=== PATIENT | female | born 2005 | race American Indian/Alaskan Native ===

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

== ENCOUNTER 2023-07-08 20:51 | Emergency (ER) | payer MEDICAID ==
[2023-07-08] MEDS ORDERED: Sodium Chloride 0.9% 1,000 ML IV ONE (20:59)
[2023-07-08] MEDS ORDERED: Ondansetron 4 MG/2 ML SDV IVPUSH ONE (20:59)
[2023-07-08 21:10] LABS: BASOPHILS PERCENT AUTO 0.3 % (0.0-1.0); EOSINOPHILS PERCENT AUTO 1.3 % (1.0-3.0); HEMATOCRIT 41.1 % (37.0-47.0); HEMOGLOBIN 13.2 g/dL (12.0-16.0); LYMPHOCYTES PERCENT AUTO 32.5 % (20.5-50.1); MEAN CORPUSCULAR HEMOGLOBIN 27.5 pg (27.0-34.0); MEAN CORPUSCULAR HGB CONC 32.1 g/dL (33.0-35.0); MEAN CORPUSCULAR VOLUME 85.6 fL (80-100); MONOCYTES PERCENT AUTO 7.4 % (2-8); NEUTROPHILS PERCENT AUTO 58.5 % (42.2-75.2); PLATELET COUNT,PLT 386 10^3/uL (150-450)
[2023-07-08 21:23] LABS: LACTIC ACID 1.6 mmol/L (0.4-2.0)
[2023-07-08 21:27] LABS: HCG QUALITATIVE,SERUM NEGATIVE (NEGATIVE); INR 0.9 (0.9-1.2); PROTHROMBIN TIME 9.3 SEC (9.0-12.0); PTT,PARTIAL THROMBOPLSTIN TIME 23.9 SEC (22.0-34.0)
[2023-07-08 21:33] LABS: AMPHETAMINES,URINE NEGATIVE (NEGATIVE); BARBITURATES,URINE NEGATIVE (NEGATIVE); BENZODIAZEPINE,URINE NEGATIVE (NEGATIVE); MDMA (ECSTASY), URINE NEGATIVE (NEGATIVE); METHADONE,URINE NEGATIVE (NEGATIVE); METHAMPHETAMINES,URINE NEGATIVE (NEGATIVE); OPIATES,URINE NEGATIVE (NEGATIVE); OXYCODONE,URINE NEGATIVE (NEGATIVE); PHENCYCLIDINE,URINE NEGATIVE (NEGATIVE); TCA,URINE NEGATIVE (NEGATIVE)
[2023-07-08 21:34] LABS: APPEARANCE,URINE CLEAR (CLEAR); BILIRUBIN,URINE NEGATIVE (NEGATIVE); COLOR,URINE YELLOW (YELLOW); GLUCOSE,URINE NEGATIVE (NEGATIVE); KETONES,URINE NEGATIVE (NEGATIVE); LEUKOCYTE ESTERASE,URINE NEGATIVE (NEGATIVE); NITRITE,URINE NEGATIVE (NEGATIVE); OCCULT BLOOD,URINE TRACE-LYSED (NEGATIVE); PROTEIN,URINE NEGATIVE (NEGATIVE); UROBILINOGEN,URINE 0.2 mg/dL (0.2-1.0)
[2023-07-08 21:37] LABS: A/G RATIO 0.9; ALANINE AMINOTRANSFERASE,ALT 16 U/L (14-59); ALBUMIN 3.6 g/dL (3.4-5.0); ALKALINE PHOSPHATASE 144 U/L (46-116); ANION GAP 14.4 mEq/L (7-13); ASPARTATE AMNIOTRANSFERASE,AST 11 U/L (15-37); BILIRUBIN TOTAL 0.2 mg/dL (0.2-1.0); BLOOD UREA NITROGEN,BUN 5 mg/dL (7-18); BUN/CREATININE RATIO 6.8 (No establ ref range); CALCIUM 8.5 mg/dL (8.5-10.1); CARBON DIOXIDE,CO2 23 mmol/L (21-32); CHLORIDE,CL 107 mmol/L (98-107); CREATININE 0.74 mg/dL (0.55-1.02); EST CRCL DRUG DOSING (CG) 100.32 mL/min; GLUCOSE RANDOM 79 mg/dL (70-99); MAGNESIUM 2.4 mg/dL (1.8-2.4); POTASSIUM,K 3.4 mmol/L (3.5-5.1); PROTEIN TOTAL,TP 7.7 g/dL (6.4-8.2); SODIUM,NA 141 mmol/L (136-145); TSH ULTRASENSITIVE 0.49 uIU/mL (0.36-3.74)
[2023-07-08 21:39] LABS: ESTIMATED GFR 119 mL/min (>=60)
[2023-07-08 21:40] LABS: ETHANOL BLOOD MEDICAL 419 mg/dL (0)
[2023-07-08] MEDS: Sodium Chloride 0.9% 10 ML Syringe FLUSH PRN ×2 (21:42→23:09)
[2023-07-08 21:45] LABS: BACTERIA,URINE RARE /HPF (0-FEW/HPF); EPITHELIAL CELLS,URINE RARE /HPF (NOT SEEN); RBC,URINE 0-5 /HPF (0-5); WBC,URINE 0-5 /HPF (0-5/HPF)
[2023-07-08] MEDS ORDERED: Lactated Ringers 1,000 ML IV ONE ×2 (22:04→23:28)
[2023-07-09 05:56] VITALS: BP 95/62; PULSE 98
== END 2023-07-09 05:50 | disposition home or self-care (01) ==
LOC: DL.ED 20:51
DX: E87.6 Hypokalemia (principal); F10.920 Alcohol use, unspecified with intoxication, uncomplicated
CPT/HCPCS: 36415; 51702; 70450; 72125; 80053; 80305-QW; 80307; 81001; 83605; 83735; 84443; 84703; 85025; 85610; 85730; 96361; 96374; 99284; 99285-25; J2405; J3490; J7030; J7120

== ENCOUNTER 2025-04-23 22:10 | Inpatient (IN) | payer MEDICAID ==
[2025-04-23] MEDS: Lactated Ringers 1,000 ML IV ONE (23:40)
[2025-04-23] MEDS ORDERED: Oxytocin/Lactated Ringers 30 UNIT/500 ML BAG IV SCH (23:45)
[2025-04-23] MEDS ORDERED: Sodium Chloride 0.9% 10 ML Syringe FLUSH PRN (23:55)
[2025-04-23] MEDS ORDERED: Ondansetron 4 MG/2 ML SDV IVPUSH PRN (23:55)
[2025-04-23] MEDS ORDERED: Carboprost Tromethamine 250 MCG/1 ML Amp IM PRN (23:55)
[2025-04-24 00:03] LABS: PLATELET COUNT,PLT 326.0 10^3/uL (150-450); RED BLOOD CELL COUNT 3.91 10^6/uL (4.2-5.4); WHITE BLOOD CELL COUNT,WBC 12.9 10^3/uL (5.0-10.0)
[2025-04-24] MEDS: Lactated Ringers 1,000 ML IV SCH (00:34)
[2025-04-24 01:03] LABS: APPEARANCE,URINE SLIGHTLY CLOUDY (CLEAR); GLUCOSE,URINE NEGATIVE (NEGATIVE); OCCULT BLOOD,URINE SMALL (NEGATIVE)
[2025-04-24 01:07] LABS: AMPHETAMINES,URINE POSITIVE (NEGATIVE); BARBITURATES,URINE NEGATIVE (NEGATIVE); MDMA (ECSTASY), URINE NEGATIVE (NEGATIVE); METHAMPHETAMINES,URINE POSITIVE (NEGATIVE); OPIATES,URINE NEGATIVE (NEGATIVE); OXYCODONE,URINE NEGATIVE (NEGATIVE); PHENCYCLIDINE,URINE NEGATIVE (NEGATIVE); TCA,URINE NEGATIVE (NEGATIVE)
[2025-04-24 01:24] LABS: SQUAMOUS EPITHELIAL CELLS,UR MODERATE /HPF (NOT SEEN)
[2025-04-24] MEDS ORDERED: Ropivacaine 200 MG in Premix Bag 1 BAG EPIDUR SCH (01:45)
[2025-04-24] MEDS: ePHEDrine 50 MG/ML SDV IVPUSH PRN (03:31)
[2025-04-24] MEDS: Oxytocin/Normal Saline 30 UNIT/500 ML BAG IV SCH (04:04)
[2025-04-24] MEDS: Benzocaine/Menthol 20%-0.5% Spray 78 GM Cannister TOP PRN (13:22)
[2025-04-24] MEDS: Witch Hazel Medicated Pads 100/Jar TOP PRN (13:23)
[2025-04-26 07:37] VITALS: BP 110/68; PULSE 68
[2025-04-26] MEDS: Ketorolac 30 MG/ML SDV IM ONE (15:07)
[2025-04-26] MEDS ORDERED: Ropivacaine 100 ML EPIDUR ONE (18:29)
== END 2025-04-26 18:30 | disposition home or self-care (01) | DRG 806 ==
LOC: DL.OBCHECK 22:10 → DL.OB 04-24 → OBSVTOIN 04-24 11:13
PROVIDERS: ADMIT Obstetrics & Gynecology; ATTEND Family Medicine
PROC: 10907ZC Drainage of Amniotic Fluid, Therapeutic from Products of Conception, Via Natural or Artificial Opening (ICD-10-PCS; principal; 2025-04-24)
PROC: 10E0XZZ Delivery of Products of Conception, External Approach (ICD-10-PCS; principal; 2025-04-24)
DX: O99.02 Anemia complicating childbirth (principal); O98.82 Other maternal infectious and parasitic diseases complicating childbirth; Z37.0 Single live birth; O99.324 Drug use complicating childbirth; O36.8339 Maternal care for abnormalities of the fetal heart rate or rhythm, third trimester, other fetus; Z3A.38 38 weeks gestation of pregnancy
CPT/HCPCS: 01967; 36415; 51702; 59409; 59414; 80305-QW; 81001; 85027; 86850; 86900; 86901; A9270-GY; J1885; J2590; J2795; J3490; J7120

== ENCOUNTER 2025-06-03 04:36 | Emergency (ER) | payer MEDICAID ==
[2025-06-03] MEDS: Sodium Chloride 0.9% 10 ML Syringe FLUSH PRN (05:15)
[2025-06-03] MEDS: Ondansetron 4 MG/2 ML SDV IVPUSH ONE (05:15)
[2025-06-03 05:21] LABS: BASOPHILS PERCENT AUTO 0.1 % (0.0-1.0); EOSINOPHILS PERCENT AUTO 2.5 % (1.0-3.0); LYMPHOCYTES PERCENT AUTO 36.8 % (20.5-50.1); MONOCYTES PERCENT AUTO 9.1 % (2-8); NEUTROPHILS PERCENT AUTO 51.5 % (42.2-75.2); PLATELET COUNT,PLT 314 10^3/uL (150-450); RED BLOOD CELL COUNT 4.21 10^6/uL (4.2-5.4); WHITE BLOOD CELL COUNT,WBC 7.9 10^3/uL (5.0-10.0)
[2025-06-03 05:38] LABS: ALANINE AMINOTRANSFERASE,ALT 16 U/L (14-59); ASPARTATE AMNIOTRANSFERASE,AST 11 U/L (15-37); BILIRUBIN TOTAL 0.2 mg/dL (0.2-1.0); BLOOD UREA NITROGEN,BUN 14 mg/dL (7-18); CARBON DIOXIDE,CO2 26 mmol/L (21-32); CHLORIDE,CL 107 mmol/L (98-107); CREATININE 0.66 mg/dL (0.55-1.02); EST CRCL DRUG DOSING (CG) 110.60 mL/min; GLUCOSE RANDOM 88 mg/dL (70-99); POTASSIUM,K 3.4 mmol/L (3.5-5.1); PROTEIN TOTAL,TP 6.4 g/dL (6.4-8.2); SODIUM,NA 140 mmol/L (136-145)
[2025-06-03 05:40] LABS: A/G RATIO 0.94; ESTIMATED GFR 127 mL/min (>=60)
[2025-06-03] MEDS: Iopamidol 612 MG/ML 100 ML Bottle IVPUSH ONE (05:46)
[2025-06-03] MEDS: Lactated Ringers 1,000 ML IV ONE (05:59)
[2025-06-03] MEDS: Ketorolac 30 MG/ML SDV IVPUSH ONE (06:00)
[2025-06-03 06:25] LABS: APPEARANCE,URINE SLIGHTLY CLOUDY (CLEAR); GLUCOSE,URINE NEGATIVE (NEGATIVE); OCCULT BLOOD,URINE LARGE (NEGATIVE)
[2025-06-03 06:28] LABS: AMPHETAMINES,URINE NEGATIVE (NEGATIVE); BARBITURATES,URINE NEGATIVE (NEGATIVE); MDMA (ECSTASY), URINE NEGATIVE (NEGATIVE); METHAMPHETAMINES,URINE NEGATIVE (NEGATIVE); OPIATES,URINE NEGATIVE (NEGATIVE); OXYCODONE,URINE NEGATIVE (NEGATIVE); PHENCYCLIDINE,URINE NEGATIVE (NEGATIVE); TCA,URINE NEGATIVE (NEGATIVE)
[2025-06-03 06:52] LABS: EPITHELIAL CELLS,URINE MANY /HPF (NOT SEEN)
[2025-06-03 07:15] LABS: CHOLESTEROL HDL 37 mg/dL (40-59); CHOLESTEROL LDL CALCULATED 107 mg/dL (0-100); CHOLESTEROL TOTAL 165 mg/dL (0-199)
[2025-06-03 07:51] VITALS: BP 96/61; PULSE 54
== END 2025-06-03 07:49 | disposition home or self-care (01) ==
LOC: DL.ED 04:36
DX: O99.63 Diseases of the digestive system complicating the puerperium (principal); K85.00 Idiopathic acute pancreatitis without necrosis or infection; F17.210 Nicotine dependence, cigarettes, uncomplicated
CPT/HCPCS: 36415; 71045; 74177; 80053; 80061; 80305; 80307; 81001; 83690; 83735; 85025; 87086; 96361; 96374; 96375; 99285; J1885; J2405; J7120; Q9967; 99284

== ENCOUNTER 2025-06-20 02:07 | Emergency (ER) | payer MEDICAID ==
[2025-06-20 02:24] LABS: BASOPHILS PERCENT AUTO 0.2 % (0.0-1.0); EOSINOPHILS PERCENT AUTO 3.3 % (1.0-3.0); LYMPHOCYTES PERCENT AUTO 29.9 % (20.5-50.1); MONOCYTES PERCENT AUTO 7.9 % (2-8); NEUTROPHILS PERCENT AUTO 58.7 % (42.2-75.2); PLATELET COUNT,PLT 353 10^3/uL (150-450); RED BLOOD CELL COUNT 4.17 10^6/uL (4.2-5.4); WHITE BLOOD CELL COUNT,WBC 9.3 10^3/uL (5.0-10.0)
[2025-06-20 02:43] LABS: A/G RATIO 0.9; ALANINE AMINOTRANSFERASE,ALT 25.0 U/L (14-59); ASPARTATE AMNIOTRANSFERASE,AST 30.0 U/L (15-37); BILIRUBIN TOTAL 0.3 mg/dL (0.2-1.0); BLOOD UREA NITROGEN,BUN 12.0 mg/dL (7-18); CARBON DIOXIDE,CO2 25.0 mmol/L (21-32); CHLORIDE,CL 107.0 mmol/L (98-107); CREATININE 0.6 mg/dL (0.55-1.02); EST CRCL DRUG DOSING (CG) 127.0 mL/min; ESTIMATED GFR 130.0 mL/min (>=60); GLUCOSE RANDOM 97.0 mg/dL (70-99); POTASSIUM,K 3.5 mmol/L (3.5-5.1); PROTEIN TOTAL,TP 7.4 g/dL (6.4-8.2); SODIUM,NA 142.0 mmol/L (136-145)
[2025-06-20] MEDS: GI Cocktail Oral Solution 30 ML PO ONE (03:14)
[2025-06-20 03:43] VITALS: BP 102/65; PULSE 67
== END 2025-06-20 03:41 | disposition home or self-care (01) ==
LOC: DL.ED 02:07
DX: K21.9 Gastro-esophageal reflux disease without esophagitis (principal)
CPT/HCPCS: 36415; 80053; 83690; 85025; 99283; 99284; A9270

== ENCOUNTER 2025-07-01 05:07 | Emergency (ER) | payer MEDICAID ==
[2025-07-01] MEDS: GI Cocktail Oral Solution 30 ML PO ONE (05:24)
[2025-07-01 05:39] LABS: BASOPHILS PERCENT AUTO 0.2 % (0.0-1.0); EOSINOPHILS PERCENT AUTO 4.2 % (1.0-3.0); LYMPHOCYTES PERCENT AUTO 24.2 % (20.5-50.1); MONOCYTES PERCENT AUTO 6.6 % (2-8); NEUTROPHILS PERCENT AUTO 64.8 % (42.2-75.2); PLATELET COUNT,PLT 371 10^3/uL (150-450); RED BLOOD CELL COUNT 4.08 10^6/uL (4.2-5.4); WHITE BLOOD CELL COUNT,WBC 11.0 10^3/uL (5.0-10.0)
[2025-07-01 05:59] LABS: LACTIC ACID 0.8 mmol/L (0.4-2.0)
[2025-07-01 06:03] LABS: ALANINE AMINOTRANSFERASE,ALT 24 U/L (14-59); ASPARTATE AMNIOTRANSFERASE,AST 20 U/L (15-37); BILIRUBIN TOTAL 0.2 mg/dL (0.2-1.0); BLOOD UREA NITROGEN,BUN 12 mg/dL (7-18); CARBON DIOXIDE,CO2 24 mmol/L (21-32); CHLORIDE,CL 105 mmol/L (98-107); CREATININE 0.83 mg/dL (0.55-1.02); EST CRCL DRUG DOSING (CG) 91.81 mL/min; GLUCOSE RANDOM 95 mg/dL (70-99); POTASSIUM,K 3.6 mmol/L (3.5-5.1); PROTEIN TOTAL,TP 6.8 g/dL (6.4-8.2); SODIUM,NA 138 mmol/L (136-145)
[2025-07-01 06:05] LABS: A/G RATIO 0.84; ESTIMATED GFR 102 mL/min (>=60)
[2025-07-01] MEDS: Iopamidol 612 MG/ML 100 ML Bottle IVPUSH ONE (06:07)
[2025-07-01 08:01] VITALS: BP 97/62; PULSE 81
== END 2025-07-01 08:25 | disposition home or self-care (01) ==
LOC: DL.ED 05:07
DX: K85.00 Idiopathic acute pancreatitis without necrosis or infection (principal); F17.210 Nicotine dependence, cigarettes, uncomplicated
CPT/HCPCS: 36415; 74177; 80053; 81025; 83605; 83690; 85025; 96374; 99284; A9270; J1171; Q9967